=== PATIENT | female | born 1990 | race Caucasian/White ===

== ENCOUNTER → 2019-06-24 09:17 | Outpatient (BNVA) | payer BC, SELFPAY | PROVIDERS: Family Provider Nurse Practitioner Family; PCP Nurse Practitioner Family; Visit Provider Nurse Practitioner Family | DX: R73.9 Hyperglycemia, unspecified (principal); R73.09 Other abnormal glucose | CPT/HCPCS: 80053; 83036; 85025 ==

== ENCOUNTER → 2019-06-25 15:10 | Outpatient (BNVA) | payer BC, SELFPAY | PROVIDERS: Family Provider Nurse Practitioner Family; PCP Nurse Practitioner Family; Visit Provider Otolaryngology | DX: J32.9 Chronic sinusitis, unspecified (principal); J34.3 Hypertrophy of nasal turbinates; J34.2 Deviated nasal septum; H69.80 Other specified disorders of Eustachian tube, unspecified ear; H91.90 Unspecified hearing loss, unspecified ear | CPT/HCPCS: 96372; 99214; J3301 ==

== ENCOUNTER → 2019-07-16 13:40 | Outpatient (BNVA) | payer BC, SELFPAY | PROVIDERS: Family Provider Nurse Practitioner Family; PCP Nurse Practitioner Family; Referring Provider Nurse Practitioner Family; Visit Provider Otolaryngology | DX: H93.90 Unspecified disorder of ear, unspecified ear (principal); H69.80 Other specified disorders of Eustachian tube, unspecified ear; J34.3 Hypertrophy of nasal turbinates; J34.2 Deviated nasal septum | CPT/HCPCS: 99214 ==

== ENCOUNTER → 2019-08-20 09:57 | Outpatient (BNVA) | payer BC, SELFPAY | PROVIDERS: Family Provider Nurse Practitioner Family; PCP Nurse Practitioner Family; Visit Provider Otolaryngology | DX: H69.83 Other specified disorders of Eustachian tube, bilateral (principal); J34.3 Hypertrophy of nasal turbinates; J34.2 Deviated nasal septum | CPT/HCPCS: 99214; 96372; J3301 ==

== ENCOUNTER → 2019-11-20 16:26 | Outpatient (BNVA) | payer BC, SELFPAY | PROVIDERS: Family Provider Nurse Practitioner Family; PCP Nurse Practitioner Family; Visit Provider Nurse Practitioner Family | DX: M25.531 Pain in right wrist (principal) | CPT/HCPCS: 73110 ==

== ENCOUNTER → 2020-02-06 10:11 | Outpatient (BNVA) | payer BC, SELFPAY | PROVIDERS: Family Provider Nurse Practitioner Family; PCP Nurse Practitioner Family; Visit Provider Nurse Practitioner Family | DX: R35.0 Frequency of micturition (principal) | CPT/HCPCS: 81000 ==

== ENCOUNTER → 2020-02-14 10:02 | Outpatient (BNVA) | payer BC, SELFPAY | PROVIDERS: Family Provider Nurse Practitioner Family; PCP Nurse Practitioner Family; Visit Provider Nurse Practitioner Family | DX: N39.0 Urinary tract infection, site not specified (principal) | CPT/HCPCS: 81000 ==

== ENCOUNTER 2020-03-10 09:56 | Outpatient (CLI) | payer BC, SELFPAY ==
--- NOTE | 2020-03-10 11:45 | US_ITS ---
WS: [id number] INDICATION: Skin induration axillary TECHNIQUE: Ultrasound left axilla. FINDINGS: Ultrasound left axilla area of concern. There is a superficial mixed echogenicity collectio n in the area of concern. This measures approximately 1.7 x 4.1 x 0.7 cm small amount of peripheral v ascularity. No definite internal or central vascularity. US/US soft tissue/extremity [id number] IMPRESSION: Left axillary lesion/collection measures 1.7 x 4.1 x 0.7 cm. This does not appe ar drainable but may represent an infected sebaceous cyst with phlegmon. Recomm end clinical correlation for infection and cellulitis. This could be aspirated or biopsied if persistent after antibiotic treatment.
== END 2020-03-10 09:57 | disposition home or self-care (01) ==
LOC: US 09:57
PROVIDERS: PCP Nurse Practitioner Family; Visit Provider Nurse Practitioner Family
DX: R23.4 Changes in skin texture (principal)
CPT/HCPCS: 76882

== ENCOUNTER → 2020-06-24 10:31 | Outpatient (BNVA) | payer OTHER, SELFPAY | PROVIDERS: PCP Nurse Practitioner Family; Visit Provider Nurse Practitioner Family | DX: M25.531 Pain in right wrist (principal); M25.431 Effusion, right wrist | CPT/HCPCS: 73110 ==

== ENCOUNTER → 2020-09-14 11:07 | Outpatient (BNVA) | payer OTHER, SELFPAY | PROVIDERS: PCP Nurse Practitioner Family; Visit Provider Nurse Practitioner Family | DX: M25.531 Pain in right wrist (principal); M25.431 Effusion, right wrist; S69.91XA Unspecified injury of right wrist, hand and finger(s), initial encounter; X58.XXXA Exposure to other specified factors, initial encounter | CPT/HCPCS: 73110 ==

== ENCOUNTER 2021-03-29 19:34 | Emergency (ER) | payer OTHER, SELFPAY ==
[2021-03-29 20:07] VITALS: BP 159/98; PULSE 85; RESP 16; TEMP 36.5; O2SAT 99
[2021-03-29 21:31] LABS: Basophils # 0.1 10^3/uL (0.0-0.1); Basophils % 0.6 %; Eosinophils # 0.1 10^3/uL (0.0-0.8); Eosinophils % 0.9 %; Hematocrit 50.5 % (37.0-47.0); Hemoglobin 15.6 g/dL (11.5-15.3); Lymphocytes # 2.4 10^3/uL (0.8-4.8); Lymphocytes % 25.3 %; Mean Corpuscular HGB Conc 30.9 g/dL (30.0-36.0); Mean Corpuscular Hemoglobin 30.4 pg (28.0-34.0); Mean Corpuscular Volume 98.4 fl (81-99); Mean Platelet Volume 10.8 fL (7.4-10.4); Monocytes # 0.5 10^3/uL (0.2-0.9); Monocytes % 5.4 %; Neutrophils # 6.35 10^3/uL (1.8-7.7); Neutrophils % 67.6 %; Nucleated Red Blood Cells % 0 %; Platelet Count 235 10^3/cmm (130-400); Red Blood Count 5.13 10^6/uL (4.1-5.3); Red Cell Distribution Width 12.8 % (12.1-15.1); White Blood Count 9.4 10^3/uL (4.0-10.0)
[2021-03-29 21:58] LABS: Slide Review Slide Review Perform
[2021-03-29 22:02] LABS: Alanine Aminotransferase 33 U/L (0-33); Albumin Level 3.8 g/dL (3.5-5.2); Alkaline Phosphatase 148 IU/L (35-105); Aspartate Amino Transferase 22 U/L (0-32); Blood Urea Nitrogen 6 mg/dL (6-20); Calcium 8.8 mg/dL (8.5-10.5); Carbon Dioxide 18 mmol/L (22-29); Chloride 104 mmol/L (98-107); Glomerular Filtration Rate 83.7 mL/min (90-130); Glucose 91 mg/dL (65-115); Lipase 54 U/L (13-60); Osmolality Calculated 281 mOsm/kg (285-295); Sodium 137 mmol/L (136-145); Total Bilirubin 0.2 mg/dL (0.15-1.2); Total Protein 7.8 g/dL (6.6-8.7)
[2021-03-29 22:03] LABS: Add Urine Culture? No; Add Urine Microscopic? YES; Bacteria Urine 1+ /hpf; Bilirubin Urine Neg (Negative); Blood Urine 3+ (Negative); Glucose Urine UA Norm (Normal); Ketones Urine Negative (Negative); Leukocyte Esterase Urine Trace (Negative); Mucus Urine TRACE /hpf; Nitrate Urine Negative (Negative); Protein Urine Neg (Negative); RBC Urine 0-4 /hpf (0-2); Specific Gravity, Urine 1.015 (1.005-1.030); Urine Appearance SL Hazy (CLEAR); Urine Color Yellow (Yellow); Urobilinogen Urine Norm (Negative); pH Urine 5 (5-7)
[2021-03-29 22:04] LABS: Anion Gap 18.8 (5-19); Potassium 3.8 mmol/L (3.5-5.1)
--- NOTE | 2021-03-29 22:24 | ED_ITS ---
HPI - Abdominal Pain General: Chief Complaint: Abdominal Pain Stated Complaint: Pain on Right Side Time Seen by Provider: 03/29/21 22:07 History of Present Illness: HPI narrative: Patient is a 30-year-old female comes to the ED with abdominal pain. Patient says pain started approximately 4 days ago. Says the pain started off more mild and it has progressed and gotten worse. She has a history of kidney stones and states the pain is similar to past kidney stones. Abdominal pain currently is rated a 4 out of 10 is located in the right lower quadrant of the abdomen and then radiates up to her right flank. She says symptoms worsen after she eats. She also endorses having nausea but has not had a fever or any episodes of emesis. Denies any UTI symptoms. Denies any chance of being and says she is currently on her period. Associated Symptoms: Reports nausea; Denies chills, constipation, diarrhea, dysuria, fever(s), hematochezia, hematuria and vomiting Review of Systems Const: Denies: fever(s), chills or fatigue Eyes: Denies: change in vision or eye discomfort ENMT: Denies: throat pain, odynophagia, nasal discharge or nasal congestion Card: Denies: chest pain, palpitations, edema, swelling of feet/ankles, dyspnea on exertion or orthopnea Resp: Denies: dyspnea, productive cough or non-productive cough GI: Reports: abdominal pain and nausea; Denies: vomiting, diarrhea, constipation or hematochezia : Denies: flank pain, dysuria or hematuria Musc: Denies: neck pain, back pain or extremity swelling Skin/Breast: Denies: rash or new lesions Neuro: Denies: headache(s), numbness in extremities or weakness in extremities PFS ED PFSH: Medical History Environmental and seasonal allergies Kidney stones Thyroid cancer Surgical History History of lithotripsy History of thyroidectomy Family History Other Diabetes Denies family history of Anesthesia complication Bleeding disorder Social History Smoking and tobacco status: never smoked Second hand smoke exposure: No Alcohol intake: never Lives independently: Yes Housing: House Marital status: Single History of recent travel: No Physical Exam Const: COMMON NORMALS: no acute distress, patient oriented x3, healthy appearing and alert GENERAL APPEARANCE: cooperative and comfortable HENMT: COMMON NORMALS: normocephalic HEAD & SCALP: normocephalic MOUTH: Normal oral and palatal mucosa present THROAT: posterior oropharynx normal and uvula midline Neck/C-Spine: COMMON NORMALS: supple GENERAL: Yes normal visual inspection Resp: COMMON NORMALS: normal respiratory effort, No retractions, No use of accessory muscles and clear to auscultation bilaterally AUSCULTATION: clear to auscultation bilaterally Cardio: COMMON NORMALS: regular rate, regular rhythm, S1 normal heart sound present, S2 normal heart sound present, No gallops present (Cardio), No clicks present (Cardio), No murmurs present (Cardio) and Peripheral pulses 2+ throughout RATE: regular rate RHYTHM: regular rhythm HEART SOUNDS: S1 normal heart sound present and S2 normal heart sound present PERIPHERAL PULSES: Peripheral pulses 2+ throughout GI: COMMON NORMALS: Normal to inspection, nondistended, normoactive bowel sounds present, Soft to palpation and no masses PALPATION: Yes Soft to palpation and Yes Tenderness to palpation present (GI) Details: RLQ : BLADDER/KIDNEY EXAM: Yes CVA tenderness on the right Back/Pelvis: GENERAL BACK: Yes CVA tenderness Extremity: COMMON NORMALS: normal to inspection Neuro: COMMON NORMALS: patient oriented x3 SENSORIUM/ORIENTATION: Yes alert GAIT: Yes Normal gait present Skin: GENERAL SKIN EXAM: dry skin Course Vital Signs: Vital signs: Vital Signs Temperature 97.7 F 03/29/21 20:07 Pulse Rate 96 03/30/21 01:03 Respiratory Rate 19 H 03/30/21 01:03 Blood Pressure 141/72 03/30/21 01:03 Pulse Oximetry 99 03/30/21 01:03 MDM - Abdominal Pain MDM Narrative: Medical decision making narrative: Patient is a 30-year-old female comes to the ED with abdominal pain. Pain is located in the right lower quadrant of the abdomen. Endorses some nausea and worsening symptoms when she eats. Denies fever, emesis, bladder or bowel symptoms. Vital stable. Patient appears nontoxic and in no acute distress or pain. She has some right lower quadrant abdominal tenderness. Labs are unremarkable. CT of abdomen pelvis showed no acute findings. Patient was given IV fluids, Toradol and Reglan while here in the ED. She has diagnosed with abdominal pain and discharged home with a prescription for Celebrex and Reglan. She was told to follow-up with her PCP in 7 to 10 days for reevaluation. Return to ED precautions given. Patient understood and agreed with plan. Lab Data: Attestation: I reviewed the patient's lab results. Labs: Lab Results 03/29/21 03/29/21 03/29/21 21:23 21:23 21:45 WBC 9.4 10^3/uL 10^3/ uL (4.0-10.0) RBC 5.13 10^6/uL 10^6 /uL (4.1-5.3) Hgb 15.6 g/dL H g/dL (11.5-15.3) Hct 50.5 % H % (37.0-47.0) MCV 98.4 fl fl (81-99) MCH 30.4 pg pg (28.0-34.0) MCHC 30.9 g/dL g/dL (30.0-36.0) RDW 12.8 % % (12.1-15.1) Plt Count 235 10^3/cmm 10^3 /cmm (130-400) MPV 10.8 fL H fL (7.4-10.4) Neut % (Auto) 67.6 % % Lymph % (Auto) 25.3 % % [place] % (Auto) 5.4 % % Eos % (Auto) 0.9 % % Baso % (Auto) 0.6 % % Neut # (Auto) 6.35 10^3/uL 10^3 /uL (1.8-7.7) Lymph # (Auto) 2.4 10^3/uL 10^3/ uL (0.8-4.8) [place] # (Auto) 0.5 10^3/uL 10^3/ uL (0.2-0.9) Eos # (Auto) 0.1 10^3/uL 10^3/ uL (0.0-0.8) Baso # (Auto) 0.1 10^3/uL 10^3/ uL (0.0-0.1) Nucleated RBC % (a uto) 0 % % Nucleated RBCs # 0.0 /100WBC /100W BC Sodium 137 mmol/L mmol/L (136-145) Potassium 3.8 mmol/L mmol/L (3.5-5.1) Chloride 104 mmol/L mmol/L (98-107) Carbon Dioxide 18 mmol/L L mmol/ L (22-29) Anion Gap 18.8 (5-19) BUN 6 mg/dL mg/dL (6-20) Creatinine 0.8 mg/dL mg/dL (0.5-0.9) GFR Calculation 83.7 mL/min L mL/ min (90-130) Glucose 91 mg/dL mg/dL (65-115) Calculated Osmolal ity 281 mOsm/kg L mOs m/kg (285-295) Calcium 8.8 mg/dL mg/dL (8.5-10.5) Total Bilirubin 0.2 mg/dL mg/dL (0.15-1.2) AST 22 U/L U/L (0-32) ALT 33 U/L U/L (0-33) Alkaline Phosphata se 148 IU/L H IU/L (35-105) Total Protein 7.8 g/dL g/dL (6.6-8.7) Albumin 3.8 g/dL g/dL (3.5-5.2) Globulin 4.0 g/dL g/dL (1.3-4.6) Lipase 54 U/L U/L (13-60) Urine Color Yellow (Yellow) Urine Appearance Sl hazy (CLEAR) Urine pH 5 (5-7) Ur Specific Gravit y 1.015 (1.005-1.030) Urine Protein Neg (Negative) Urine Glucose (UA) Norm (Normal) Urine Ketones Negative (Negative) Urine Blood 3+ H (Negative) Urine Nitrate Negative (Negative) Urine Bilirubin Neg (Negative) Urine Urobilinogen Norm mg/dL mg/dL (Negative) Ur Leukocyte Rosio ase Trace H (Negative) Urine RBC 0-4 /hpf H /hpf (0-2) Urine WBC 5-10 /hpf H /hpf (0-5) Ur Squamous Epith Cells 10-15 /hpf H /hpf (0-5) Amorphous Sediment Not Reportable Urine Bacteria 1+ /hpf H /hpf (NONE) Urine Mucus Trace /hpf /hpf Urine HCG, Qual 03/29/21 21:45 WBC RBC Hgb Hct MCV MCH MCHC RDW Plt Count MPV Neut % (Auto) Lymph % (Auto) [place] % (Auto) Eos % (Auto) Baso % (Auto) Neut # (Auto) Lymph # (Auto) [place] # (Auto) Eos # (Auto) Baso # (Auto) Nucleated RBC % (a uto) Nucleated RBCs # Sodium Potassium Chloride Carbon Dioxide Anion Gap BUN Creatinine GFR Calculation Glucose Calculated Osmolal ity Calcium Total Bilirubin AST ALT Alkaline Phosphata se Total Protein Albumin Globulin Lipase Urine Color Urine Appearance Urine pH Ur Specific Gravit y Urine Protein Urine Glucose (UA) Urine Ketones Urine Blood Urine Nitrate Urine Bilirubin Urine Urobilinogen Ur Leukocyte Rosio ase Urine RBC Urine WBC Ur Squamous Epith Cells Amorphous Sediment Urine Bacteria Urine Mucus Urine HCG, Qual Negative (Negative) Imaging Data ^: CT Abd/Pel: Attestation: I personally reviewed and interpreted this imaging study as follows: Radiologist's impression: [address] [address] [address] Scan Report Signed Patient: Nia Esteban Unit #: [id number] : 1990 Age/Sex: 30 / F ADM Date: 03/29/21 Loc: ER Room/Bed: Attending Dr: Ordering Provider/Ordering MD: Reinaldo Ryder Date of Service: 03/29/21 Procedure(s): CT abdomen pelvis w con* [id number] Accession Number(s): [id number] Report Number: [id number] PROCEDURE INFORMATION: Exam: CT Abdomen And Pelvis With Contrast Exam date and time: 03/29/2021 10:26 PM Age: 30 years old Clinical indication: Abdominal pain; Localized; Right lower quadrant (rlq); Additional info: Rlq pain with nausea TECHNIQUE: Imaging protocol: Computed tomography of the abdomen and pelvis with contrast. Radiation optimization: All CT scans at this facility use at least one of these dose optimization techniques: automated exposure control; mA and/or kV adjustment per patient size (includes targeted exams where dose is matched to clinical indication); or iterative reconstruction. Contrast material: OMNI 300; Contrast volume: 95 ml; Contrast route: INTRAVENOUS (IV); COMPARISON: CR XR KUB [id number] 09/25/2014 8:04 AM RADIATION DOSE METRICS: Total DLP (mGy-cm): 1945.99 FINDINGS: Liver: Hepatic steatosis. Gallbladder and bile ducts: Normal. No calcified stones. No ductal dilation. Pancreas: Normal. No ductal dilation. Spleen: Normal. No splenomegaly. Adrenal glands: Normal. No mass. Kidneys and ureters: Normal. No hydronephrosis. Stomach and bowel: Unremarkable. No obstruction. No mucosal thickening. Appendix: No evidence of appendicitis. Intraperitoneal space: Unremarkable. No free air. No significant fluid collection. Vasculature: Unremarkable. No abdominal aortic aneurysm. Lymph nodes: Unremarkable. No enlarged lymph nodes. Urinary bladder: Unremarkable as visualized. Reproductive: Unremarkable as visualized. Bones/joints: Chronic L5 pars interarticularis defects. Soft tissues: Small umbilical hernia containing omental fat without bowel or inflammatory changes. CT/CT abdomen pelvis w con* [id number] IMPRESSION: 1. Negative for focal acute inflammatory process in the abdomen or pelvis. 2. Hepatic steatosis. 3. Small umbilical hernia containing omental fat without bowel or inflammatory changes. 4. Chronic L5 pars interarticularis defects. Radiation Dose CTDIVOL = (mGy): DLP = 1945.99 (mGy-cm) Dictated By: Jian Will MD Signed By: Jian Will MD Signed Date/Time: 03/30/210 DD/ 25 Discharge Plan Discharge Patient Disposition: Home Clinical Impression: Abdominal pain Qualifiers: Abdominal location: right lower quadrant Qualified Code(s): R10.31 - Right lower quadrant pain Condition: Stable Prescriptions: New celecoxib 100 mg capsule 100 mg PO BID PRN (Reason: pain) Qty: 20 RF: 0 metoclopramide HCl 10 mg tablet 10 mg PO Q6H PRN (Reason: nausea and vomiting) Qty: 20 RF: 0 No Action omeprazole 40 mg capsule,delayed release(DR/EC) 40 mg PO DAILY 30 Days Qty: 30 RF: 2 sucralfate [Carafate] 1 gram tablet 1 g PO TID 30 Days Qty: 90 RF: 0 levothyroxine 137 mcg capsule 137 mcg PO BID RF: 0 loratadine 10 mg tablet 10 mg PO DAILY 30 Days Qty: 30 RF: 11 montelukast [Singulair] 10 mg tablet 10 mg PO DAILY 30 Days Qty: 30 RF: 11 fluticasone propionate [Flonase Allergy Relief] 50 mcg/actuation spray,suspension 1 spray INTRANASAL BID 30 Days Qty: 9.9 RF: 11 Discharge Orders: Discharge ED (Routine); Ordered 03/30/21 Ordered By: Reinaldo Ryder Discharge Diet: Regular Discharge Activity: Resume usual activity Patient Instructions: Abdominal Pain (ED) Activity Restrictions/Additional Instructions: Follow-up with medical provider as directed in 7 to 10 days reevaluation. Take medications as prescribed. Return to the ER or your medical provider if condition worsens. Please read and understand discharge instructions. Thank you for choosing [facility] for your healthcare needs today. Please realize this is an emergency room and that we are providing you with a medical screening exam and this may not be complete and all inclusive of all the testing and or work up that you may need to determine your ailment or severity of your illness. It is very important that you follow up as instructed or that you return to the Emergency Department should you have concerns or if your condition changes or worsens in any way. Stand Alone Forms: Work/School Release Coding Level of Care Code ED Med Peds for Hari Fwd Exam Comprehensive
[2021-03-29 22:45] VITALS: BP 161/82; PULSE 80; RESP 17; O2SAT 98
[2021-03-29] MEDS: sodium chloride 0.9% 1,000 ML 999 ML IV (22:45)
[2021-03-29] MEDS: ondansetron 2 mg/ML SDV 2 mL 4 MG IVP (22:46)
[2021-03-29] MEDS: iohexol 300 mg/mL 100 mL Btl IV (23:52)
[2021-03-30] MEDS: metoclopramide 5 mg/mL SDV 2 mL 10 MG IVP (00:52)
[2021-03-30] MEDS: ketorolac 30 mg/mL INJ IVP (00:52)
[2021-03-30 01:03] VITALS: BP 141/72; PULSE 96; RESP 19; O2SAT 99
== END 2021-03-30 01:03 | disposition home or self-care (01) ==
PROVIDERS: Emergency Provider Physician Assistant
DX: R10.31 Right lower quadrant pain (principal); N20.0 Calculus of kidney; Z85.850 Personal history of malignant neoplasm of thyroid
CPT/HCPCS: 74177; 80053; 81001; 81025; 83690; 85025; 96361; 96374; 96375; 99284; J1885; J2405; J2765; J7030; Q9967

== ENCOUNTER → 2021-04-05 09:35 | Outpatient (BNVA) | payer OTHER, SELFPAY | PROVIDERS: Visit Provider Nurse Practitioner Family | DX: R10.31 Right lower quadrant pain (principal); Z12.4 Encounter for screening for malignant neoplasm of cervix; K21.9 Gastro-esophageal reflux disease without esophagitis; R10.13 Epigastric pain; R10.11 Right upper quadrant pain | CPT/HCPCS: 81000 ==

== ENCOUNTER 2021-06-08 07:51 | Outpatient (CLI) | payer OTHER, SELFPAY ==
--- NOTE | 2021-06-08 08:45 | US_ITS ---
WS: [id number] ULTRASOUND ABDOMEN LIMITED CLINICAL INFORMATION: R10.11 - Right upper quadrant pain COMPARISON: None. FINDINGS: Liver Size: Enlarged Craniocaudal length: 16.2 cm. Echogenicity: Coarse Surface nodularity: None. Mass (size and location): None. Bile ducts Intrahepatic ducts: Normal. Common bile duct diameter: 0.4 cm. Gallbladder Normal. Gallstones: None. Gallbladder sludge: None. Gallbladder wall thickening: None. Pericholecystic fluid: None. Sonographic Vega sign: Absent. Pancreas Normal as visualized. Right kidney: Normal. Hydronephrosis: None. Size: 10.2 cm x 4.3 cm x 4.4 cm. Abdominal aorta and IVC Visualized portions are normal. Ascites: None. US/US gall bladder [id number] IMPRESSION: 1. Hepatomegaly diffuse fatty infiltration. 2. Normal gallbladder and common bile duct. 3. No hydronephrosis in right kidney.
== END 2021-06-08 07:52 | disposition home or self-care (01) ==
LOC: RAD 07:54
PROVIDERS: Visit Provider Nurse Practitioner Family
DX: R10.11 Right upper quadrant pain (principal); R16.0 Hepatomegaly, not elsewhere classified; K76.89 Other specified diseases of liver
CPT/HCPCS: 76705

== ENCOUNTER → 2021-07-02 09:00 | Outpatient (BNVA) | payer OTHER, SELFPAY | PROVIDERS: PCP Nurse Practitioner Family; Referring Provider Nurse Practitioner Family; Visit Provider Obstetrics & Gynecology | DX: Z12.4 Encounter for screening for malignant neoplasm of cervix (principal) | CPT/HCPCS: 87624 ==

== ENCOUNTER → 2021-07-16 10:33 | Outpatient (BNVA) | payer OTHER, SELFPAY | PROVIDERS: PCP Nurse Practitioner Family; Visit Provider Nurse Practitioner Family | DX: M21.241 Flexion deformity, right finger joints (principal); M21.242 Flexion deformity, left finger joints; M25.531 Pain in right wrist; M25.532 Pain in left wrist; M25.541 Pain in joints of right hand; M25.542 Pain in joints of left hand; R76.8 Other specified abnormal immunological findings in serum; R10.31 Right lower quadrant pain; M19.90 Unspecified osteoarthritis, unspecified site | CPT/HCPCS: 80053; 85025; 85651; 86140; 86431 ==

== ENCOUNTER → 2021-07-29 12:06 | Outpatient (BNVA) | payer OTHER, SELFPAY | PROVIDERS: PCP Nurse Practitioner Family; Visit Provider Nurse Practitioner Family | DX: L02.419 Cutaneous abscess of limb, unspecified (principal) | CPT/HCPCS: 87070; 87077; 87184 ==

== ENCOUNTER → 2021-08-23 11:17 | Outpatient (BNVA) | payer OTHER, SELFPAY | PROVIDERS: PCP Nurse Practitioner Family; Visit Provider Nurse Practitioner Family | DX: R19.7 Diarrhea, unspecified (principal) | CPT/HCPCS: 87506 ==

== ENCOUNTER 2021-10-12 09:39 | Outpatient (CLI) | payer OTHER, SELFPAY ==
[2021-10-12 10:52] LABS: Basophils # 0.1 10^3/uL (0.0-0.1); Basophils % 0.4 %; Eosinophils # 0.1 10^3/uL (0.0-0.8); Eosinophils % 0.9 %; Hematocrit 45.4 % (37.0-47.0); Hemoglobin 14.5 g/dL (11.5-15.3); Lymphocytes # 3.8 10^3/uL (0.8-4.8); Mean Corpuscular HGB Conc 31.9 g/dL (30.0-36.0); Mean Corpuscular Hemoglobin 29.7 pg (28.0-34.0); Mean Corpuscular Volume 92.8 fl (81-99); Mean Platelet Volume 10.3 fL (7.4-10.4); Monocytes # 0.8 10^3/uL (0.2-0.9); Monocytes % 5.4 %; Neutrophils # 9.33 10^3/uL (1.8-7.7); Neutrophils % 65.9 %; Nucleated Red Blood Cells % 0 %; Platelet Count 362 10^3/cmm (130-400); Red Blood Count 4.89 10^6/uL (4.1-5.3); Red Cell Distribution Width 13.7 % (12.1-15.1); White Blood Count 14.2 10^3/uL (4.0-10.0)
[2021-10-12 11:19] LABS: Alanine Aminotransferase 23 U/L (0-33); Aspartate Amino Transferase 15 U/L (0-32); Glomerular Filtration Rate 83.1 mL/min (90-130)
== END 2021-10-12 09:40 | disposition home or self-care (01) ==
LOC: LAB 09:42
PROVIDERS: PCP Nurse Practitioner Family; Visit Provider Internal Medicine
DX: M06.9 Rheumatoid arthritis, unspecified (principal); Z79.899 Other long term (current) drug therapy
CPT/HCPCS: 36415; 82565; 84450; 84460; 85025

== ENCOUNTER → 2021-11-10 11:11 | Outpatient (BNVA) | payer OTHER, SELFPAY | PROVIDERS: PCP Nurse Practitioner Family; Visit Provider Nurse Practitioner Family | DX: J30.89 Other allergic rhinitis (principal); H65.193 Other acute nonsuppurative otitis media, bilateral | CPT/HCPCS: 87635 ==

== ENCOUNTER 2022-02-22 09:19 | Outpatient (CLI) | payer OTHER, SELFPAY ==
[2022-02-22 10:03] LABS: Basophils # 0.1 10^3/uL (0.0-0.1); Basophils % 0.7 %; Eosinophils # 0.2 10^3/uL (0.0-0.8); Eosinophils % 1.8 %; Hematocrit 42.3 % (37.0-47.0); Hemoglobin 13.6 g/dL (11.5-15.3); Lymphocytes # 2.4 10^3/uL (0.8-4.8); Lymphocytes % 24.1 %; Mean Corpuscular HGB Conc 32.2 g/dL (30.0-36.0); Mean Corpuscular Hemoglobin 31.3 pg (28.0-34.0); Mean Corpuscular Volume 97.5 fl (81-99); Mean Platelet Volume 9.9 fL (7.4-10.4); Monocytes # 0.4 10^3/uL (0.2-0.9); Monocytes % 4.3 %; Neutrophils # 6.68 10^3/uL (1.8-7.7); Neutrophils % 68.7 %; Nucleated Red Blood Cells % 0 %; Platelet Count 370 10^3/cmm (130-400); Red Blood Count 4.34 10^6/uL (4.1-5.3); Red Cell Distribution Width 13.9 % (12.1-15.1); White Blood Count 9.7 10^3/uL (4.0-10.0)
[2022-02-22 10:27] LABS: Alanine Aminotransferase 39 U/L (0-33); Aspartate Amino Transferase 23 U/L (0-32); Glomerular Filtration Rate 115.9 mL/min (90-130)
== END 2022-02-22 09:20 | disposition home or self-care (01) ==
LOC: LAB 09:23
PROVIDERS: PCP Nurse Practitioner Family; Visit Provider Internal Medicine
DX: M05.9 Rheumatoid arthritis with rheumatoid factor, unspecified (principal); M25.50 Pain in unspecified joint; Z79.52 Long term (current) use of systemic steroids; Z79.899 Other long term (current) drug therapy; D84.9 Immunodeficiency, unspecified
CPT/HCPCS: 82565; 84450; 84460; 85025

== ENCOUNTER → 2022-04-29 12:18 | Outpatient (BNVA) | payer OTHER, SELFPAY | PROVIDERS: PCP Nurse Practitioner Family; Visit Provider Nurse Practitioner Family | DX: R74.8 Abnormal levels of other serum enzymes (principal); Z13.6 Encounter for screening for cardiovascular disorders | CPT/HCPCS: 80053; 80061; 85025; 86705; 86706; 86709; 86803; 87340 ==

== ENCOUNTER → 2022-07-04 09:39 | Outpatient (BNVA) | payer OTHER, SELFPAY | PROVIDERS: PCP Nurse Practitioner Family; Visit Provider Nurse Practitioner Family | DX: E78.5 Hyperlipidemia, unspecified (principal); R73.9 Hyperglycemia, unspecified | CPT/HCPCS: 80053; 80061; 83036; 84443; 85025 ==

== ENCOUNTER → 2022-07-26 11:13 | Outpatient (BNVA) | payer OTHER, SELFPAY | PROVIDERS: PCP Nurse Practitioner Family; Visit Provider Nurse Practitioner Family | DX: E03.9 Hypothyroidism, unspecified (principal); R74.8 Abnormal levels of other serum enzymes | CPT/HCPCS: 82977; 84443 ==

== ENCOUNTER 2022-11-18 09:57 | Outpatient (CLI) | payer OTHER, SELFPAY ==
[2022-11-18 10:52] LABS: Basophils % 0.6 %; Eosinophils # 0.2 10^3/uL (0.0-0.8); Eosinophils % 2.2 %; Hematocrit 44.5 % (37.0-47.0); Hemoglobin 14.6 g/dL (11.5-15.3); Lymphocytes # 2.5 10^3/uL (0.8-4.8); Lymphocytes % 37.1 %; Mean Corpuscular HGB Conc 32.8 g/dL (30.0-36.0); Mean Corpuscular Hemoglobin 30.1 pg (28.0-34.0); Mean Corpuscular Volume 91.8 fl (81-99); Mean Platelet Volume 10.3 fL (7.4-10.4); Monocytes # 0.5 10^3/uL (0.2-0.9); Monocytes % 6.7 %; Neutrophils # 3.63 10^3/uL (1.8-7.7); Neutrophils % 53.3 %; Nucleated Red Blood Cells % 0 %; Platelet Count 294 10^3/cmm (130-400); Red Blood Count 4.85 10^6/uL (4.1-5.3); Red Cell Distribution Width 13.1 % (12.1-15.1); White Blood Count 6.8 10^3/uL (4.0-10.0)
[2022-11-18 11:07] LABS: Alanine Aminotransferase 26 U/L (0-33); Aspartate Amino Transferase 21 U/L (0-32); Glomerular Filtration Rate 96.4 mL/min (90-130)
== END 2022-11-18 09:58 | disposition home or self-care (01) ==
PROVIDERS: PCP Nurse Practitioner Family; Visit Provider Internal Medicine
DX: M05.9 Rheumatoid arthritis with rheumatoid factor, unspecified (principal); Z79.899 Other long term (current) drug therapy
CPT/HCPCS: 36415; 82565; 84450; 84460; 85025

== ENCOUNTER 2022-12-23 10:17 | Outpatient (CLI) | payer OTHER, SELFPAY ==
[2022-12-23 11:53] LABS: Basophils % 0.5 %; Eosinophils # 0.1 10^3/uL (0.0-0.8); Eosinophils % 1.3 %; Hematocrit 43.8 % (37.0-47.0); Hemoglobin 14.4 g/dL (11.5-15.3); Lymphocytes # 2.9 10^3/uL (0.8-4.8); Lymphocytes % 33.6 %; Mean Corpuscular HGB Conc 32.9 g/dL (30.0-36.0); Mean Corpuscular Hemoglobin 30.5 pg (28.0-34.0); Mean Corpuscular Volume 92.8 fl (81-99); Mean Platelet Volume 10.2 fL (7.4-10.4); Monocytes # 0.5 10^3/uL (0.2-0.9); Monocytes % 6.1 %; Neutrophils % 58.2 %; Nucleated Red Blood Cells % 0 %; Platelet Count 315 10^3/cmm (130-400); Red Blood Count 4.72 10^6/uL (4.1-5.3); Red Cell Distribution Width 13.5 % (12.1-15.1); White Blood Count 8.6 10^3/uL (4.0-10.0)
[2022-12-23 12:11] LABS: Alanine Aminotransferase 29 U/L (0-33); Aspartate Amino Transferase 17 U/L (0-32); Glomerular Filtration Rate 82.6 mL/min (90-130)
== END 2022-12-23 10:18 | disposition home or self-care (01) ==
LOC: LAB 10:19
PROVIDERS: PCP Nurse Practitioner Family; Visit Provider Internal Medicine
DX: M05.9 Rheumatoid arthritis with rheumatoid factor, unspecified (principal); L73.2 Hidradenitis suppurativa; Z79.899 Other long term (current) drug therapy
CPT/HCPCS: 82565; 84450; 84460; 85025

== ENCOUNTER → 2023-01-20 08:59 | Outpatient (BNVA) | payer OTHER, SELFPAY | PROVIDERS: PCP Nurse Practitioner Family; Visit Provider Nurse Practitioner Family | DX: E03.9 Hypothyroidism, unspecified (principal); E78.5 Hyperlipidemia, unspecified | CPT/HCPCS: 80053; 80061; 83036; 85025 ==

== ENCOUNTER 2023-02-09 06:57 | Outpatient (CLI) | payer OTHER, SELFPAY ==
--- NOTE | 2023-02-09 07:15 | MR_ITS ---
WS: [id number] MRI RIGHT FOREARM WITHOUT CONTRAST. COMPARISON: None Multiplanar, multisequence imaging is performed without contrast. History: Generalized swelling of the forearm and hand. No muscle edema or atrophy. There is no significant subcutaneous edema and no fluid collections. No f luid surrounding the muscles or within the compartments of the forearm. Osseous structures are normal . No fractures or marrow edema. No joint effusion at the elbow. There are small erosions involving the distal ulna and also the distal radius. There is a small erosi ons also noted within the visualized lunate. These are at the very edge of the image. No fluid associ ated no dislocation. IMPRESSION: 1. Articular erosions involving the distal radius and ulna and the adjacent lunate. No associated mitchell ma. No marrow edema. No dislocation. These findings can be seen with rheumatoid arthritis. 2. No synovitis appreciated.
--- NOTE | 2023-02-09 08:00 | MR_ITS ---
WS: [id number] MRI RIGHT HAND WITHOUT CONTRAST. COMPARISON: None Multiplanar, multisequence imaging is performed without contrast. History: Pain, swelling and rheumatoid arthritis. There is a very small amount of edema associated with the flexor tendons through the wrist no signifi cant amount of edema in the carpal tunnel. Very minimal increased signal associated with the flexor t endons near the MCP joints. Both of these findings can be seen with very early changes of rheumatoid arthritis. No marrow edema or subluxations or even erosions are identified. There is mild narrowing a nd slight subluxation of the first metacarpal phalangeal joint. IMPRESSION: 1. Very minimal changes of flexor tendon tenosynovitis and synovitis and synovitis at the MCP joints. These changes can be seen with early evidence for rheumatoid arthritis. 2. There is no marrow edema. No metacarpal head erosions. 3. Very minimal subluxation and joint space narrowing at the first metacarpal phalangeal joint.
== END 2023-02-09 06:58 | disposition home or self-care (01) ==
LOC: RAD 06:58
PROVIDERS: PCP Nurse Practitioner Family; Visit Provider Nurse Practitioner Family
DX: M06.9 Rheumatoid arthritis, unspecified (principal); M79.89 Other specified soft tissue disorders; Q74.0 Other congenital malformations of upper limb(s), including shoulder girdle
CPT/HCPCS: 73218; 80053; 80061; 83036; 85025

== ENCOUNTER → 2023-07-06 10:56 | Outpatient (BNVA) | payer BC, SELFPAY | PROVIDERS: PCP Nurse Practitioner Family; Visit Provider Nurse Practitioner Family | DX: E78.5 Hyperlipidemia, unspecified (principal) | CPT/HCPCS: 80053; 80061; 85025 ==

== ENCOUNTER → 2023-08-16 11:26 | Outpatient (BNVA) | payer BC, MEDICAID, SELFPAY | PROVIDERS: PCP Nurse Practitioner Family; Visit Provider Nurse Practitioner Family | DX: C73 Malignant neoplasm of thyroid gland (principal) | CPT/HCPCS: 84439; 84443; 86800 ==

== ENCOUNTER → 2023-09-26 11:09 | Outpatient (BNVA) | payer BC, MEDICAID, SELFPAY | PROVIDERS: PCP Nurse Practitioner Family; Visit Provider Nurse Practitioner Family | DX: M54.50 Low back pain, unspecified (principal) | CPT/HCPCS: 81000; 87086 ==

== ENCOUNTER 2023-09-27 10:02 | Outpatient (CLI) | payer BC, MEDICAID, SELFPAY ==
--- NOTE | 2023-09-27 10:10 | XRR_ITS ---
PROCEDURE INFORMATION: Exam: XR Abdomen Exam date and time: 09/27/2023 10:15 AM Age: 33 years old Clinical indication: Other: Hematuria, unspecified; Prior surgery; Surgery date: 6+ months; Surgery type: Lithotripsy, skin; Additional info: R31.9 - hematuria, unspecified TECHNIQUE: Imaging protocol: Radiologic exam of the abdomen. Views: Frontal supine view of the abdomen. 1 View. COMPARISON: CT abdomen pelvis w con* [id number] 03/29/2021 11:49 PM FINDINGS: Gastrointestinal tract: Calcifications checked over the lower pole left kidney.. No bowel dilation. Bones/joints: Unremarkable. XR/XR abdomen 1V* [id number] IMPRESSION: No acute findings.
[2023-09-27 10:38] LABS: Basophils # 0.1 10^3/uL (0.0-0.1); Basophils % 0.3 %; Eosinophils % 0.2 %; Hematocrit 42.2 % (36-47); Lymphocytes # 3.5 10^3/uL (0.8-4.8); Lymphocytes % 18.1 %; Mean Corpuscular HGB Conc 33.4 g/dL (30-55); Mean Corpuscular Hemoglobin 31.5 pg (27-33); Mean Corpuscular Volume 94.4 fl (85-98); Mean Platelet Volume 10.1 fL (7.4-10.4); Monocytes # 1.2 10^3/uL (0.2-0.9); Monocytes % 5.9 %; Neutrophils # 14.61 10^3/uL (1.8-7.7); Neutrophils % 74.8 %; Nucleated Red Blood Cells % 0 %; Platelet Count 318 10^3/cmm (157-399); Red Blood Count 4.47 10^6/uL (3.85-5.65); Red Cell Distribution Width 13.6 % (12.1-15.1); White Blood Count 19.52 10^3/uL (3.29-11.43)
[2023-09-27 11:00] LABS: Alanine Aminotransferase 42 U/L (0-33); Aspartate Amino Transferase 26 U/L (0-32); Glomerular Filtration Rate 82.1 mL/min (90-130)
== END 2023-09-27 10:03 | disposition home or self-care (01) ==
LOC: LAB 10:06
PROVIDERS: PCP Nurse Practitioner Family; Visit Provider Nurse Practitioner Family
DX: R31.9 Hematuria, unspecified (principal); Z87.442 Personal history of urinary calculi
CPT/HCPCS: 36415; 74018; 82565; 84450; 84460; 85025

== ENCOUNTER → 2023-10-03 11:45 | Outpatient (BNVA) | payer BC, MEDICAID, SELFPAY | PROVIDERS: PCP Nurse Practitioner Family; Visit Provider Nurse Practitioner Family | DX: R39.9 Unspecified symptoms and signs involving the genitourinary system (principal); R31.9 Hematuria, unspecified | CPT/HCPCS: 81000; 85025 ==

== ENCOUNTER → 2024-03-21 12:14 | Outpatient (BNVA) | payer BC, SELFPAY | PROVIDERS: PCP Nurse Practitioner Family; Visit Provider Nurse Practitioner Family | DX: E78.2 Mixed hyperlipidemia (principal) | CPT/HCPCS: 80053; 80061; 84443; 85025 ==

== ENCOUNTER 2024-04-16 10:06 | Outpatient (CLI) | payer BC, MEDICAID, SELFPAY ==
[2024-04-16 10:41] LABS: Basophils # 0.1 10^3/uL (0.0-0.1); Basophils % 0.5 %; Eosinophils # 0.2 10^3/uL (0.0-0.8); Eosinophils % 2.1 %; Hematocrit 45.7 % (36-47); Lymphocytes # 3.7 10^3/uL (0.8-4.8); Lymphocytes % 34.7 %; Mean Corpuscular HGB Conc 32.6 g/dL (30-55); Mean Corpuscular Hemoglobin 31.4 pg (27-33); Mean Corpuscular Volume 96.2 fl (85-98); Mean Platelet Volume 10.2 fL (7.4-10.4); Monocytes # 0.6 10^3/uL (0.2-0.9); Monocytes % 5.3 %; Neutrophils # 6.09 10^3/uL (1.8-7.7); Neutrophils % 56.9 %; Nucleated Red Blood Cells % 0 %; Platelet Count 325 10^3/cmm (157-399); Red Blood Count 4.75 10^6/uL (3.85-5.65); Red Cell Distribution Width 13.8 % (12.1-15.1); White Blood Count 10.71 10^3/uL (3.29-11.43)
[2024-04-16 11:10] LABS: Alanine Aminotransferase 53 U/L (0-33); Aspartate Amino Transferase 26 U/L (0-32); Glomerular Filtration Rate 71.3 mL/min (90-130)
== END 2024-04-16 10:07 | disposition home or self-care (01) ==
LOC: LAB 10:08
PROVIDERS: PCP Nurse Practitioner Family; Visit Provider Internal Medicine
DX: M05.9 Rheumatoid arthritis with rheumatoid factor, unspecified (principal); M06.9 Rheumatoid arthritis, unspecified; E03.9 Hypothyroidism, unspecified; Z79.899 Other long term (current) drug therapy; D84.9 Immunodeficiency, unspecified; R79.82 Elevated C-reactive protein (CRP)
CPT/HCPCS: 82565; 84450; 84460; 85025

== ENCOUNTER 2024-04-25 06:13 | Outpatient (CLI) | payer BC, MEDICAID, SELFPAY ==
--- NOTE | 2024-04-23 13:30 | P.DIET_ITS ---
Reason for Visit: R79.89 - Other specified abnormal findings of bloo Person Interviewed: Patient Medical History, Labs and Background: PMH: HS, thyroid cancer (s/p thyroidectomy 6-7 years), RA, stressed. Labs: TGL: 157, CHOL: 254, LDL: 175 Meds: 150 mg QD levo, allergy med, folic acid, rob Weight: 248 lb Concerns and Goals: goal weight of 175lbs Sleep Hygiene: 5-6 hours of sleep on a good night Physical Activity: not very. discussed opportunities Feeding Issues: None Other Feeding Issues: none Food Allergies and Sensitivities: none 24 Hour Recall: * Dietary * Staying on track is the biggest issue. Used to help with weight loss.. Likes to snack. Wanting to lose weight for about the last year.? * Snacks: popcorn, peanuts, mixed nuts * [employer], DQ, subway, pizza, [place], julita monday,? * 1-2 meals daily but mainly snack * Drinks sweet tea. Eating Out: eats out [id number] of the time. mainly fast food Soda vs Milk vs Water: mostly does sweet tea. sometimes soda Additional Comments: Environment Lives with brother and dogs. Mother and family passed recently Works at assisted living (sits at desk). 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 Likes to sleep in 5-6 hours of sleep on a good night. Recommendations: -limit kcals from liquids. switching to unsweet tea, water, and/or artificially sweetened drinks -increased protein intakes (handout provided) and having PRO source with every snack/meal -increased PA levels. going on walk 2-3 x weekly and adding resistance training 1-2 x weekly -opting for smaller CHO portions at fast food. -increase fruit and veggie consumption (1 at every meal) and buying frozen/canned to make more available and accessible at home -decrease self weigh ins from 7 x weekly at night to biweekly in the morning -increasing sleep from 5-6 hours to 7-8 hours. -stress management Coding Level of Care Code Nutrition/Individ/Init 60 min Time Spent (min) 60
--- NOTE | 2024-04-25 06:15 | US_ITS ---
WS: [id number] ULTRASOUND ABDOMEN LIMITED CLINICAL INFORMATION: R79.89 - Other specified abnormal findings of blood chemi... FINDINGS: Comparison 2020 Liver Size: Normal. Craniocaudal length: 14.8 cm. Echogenicity: Coarse Surface nodularity: None. Mass (size and location): None. Bile ducts Intrahepatic ducts: Normal. Common bile duct diameter: 0.4 cm. Gallbladder Cholelithiasis Gallstones: Present Gallbladder sludge: None. Gallbladder wall thickening: None. Pericholecystic fluid: None. Sonographic Vega sign: Absent. Pancreas Normal as visualized. Right kidney: Normal. Hydronephrosis: None. Size: 11.4 cm x 4.6 cm x 4.2 cm. Abdominal aorta and IVC Visualized portions are normal. Ascites: None. US/US liver [id number] IMPRESSION: 1. Diffuse fatty filtration liver. 2. Cholelithiasis. 3. No gallbladder wall thickening or pericholecystic fluid. 4. Normal common bile duct. 5. No hydronephrosis in the RIGHT kidney.
== END 2024-04-25 06:14 | disposition home or self-care (01) ==
PROVIDERS: PCP Nurse Practitioner Family; Visit Provider Nurse Practitioner Family
DX: K76.0 Fatty (change of) liver, not elsewhere classified (principal); R79.89 Other specified abnormal findings of blood chemistry; K80.20 Calculus of gallbladder without cholecystitis without obstruction
CPT/HCPCS: 76705

== ENCOUNTER → 2024-08-05 11:21 | Outpatient (BNVA) | payer BC, SELFPAY | PROVIDERS: PCP Nurse Practitioner Family; Visit Provider Nurse Practitioner Women's Health | DX: Z01.419 Encounter for gynecological examination (general) (routine) without abnormal findings (principal); N92.6 Irregular menstruation, unspecified | CPT/HCPCS: 83001; 83002; 83036; 83520; 84146; 84402; 84403 ==

== ENCOUNTER → 2024-08-09 09:41 | Outpatient (BNVA) | payer BC, SELFPAY | PROVIDERS: Family Provider Nurse Practitioner Family; PCP Nurse Practitioner Family; Visit Provider Nurse Practitioner Family | DX: Z79.899 Other long term (current) drug therapy (principal) | CPT/HCPCS: 86480 ==

== ENCOUNTER 2024-09-24 09:35 | Outpatient (CLI) | payer BC, SELFPAY ==
[2024-09-24 10:20] LABS: Basophils # 0.1 10^3/uL (0.0-0.1); Basophils % 0.5 %; Eosinophils # 0.3 10^3/uL (0.0-0.8); Eosinophils % 2.4 %; Hematocrit 43.8 % (36-47); Lymphocytes # 3.7 10^3/uL (0.8-4.8); Lymphocytes % 34.6 %; Mean Corpuscular HGB Conc 33.3 g/dL (30-55); Mean Corpuscular Hemoglobin 31.4 pg (27-33); Mean Corpuscular Volume 94.2 fl (85-98); Mean Platelet Volume 10.4 fL (7.4-10.4); Monocytes # 0.5 10^3/uL (0.2-0.9); Neutrophils # 6.07 10^3/uL (1.8-7.7); Neutrophils % 57.1 %; Nucleated Red Blood Cells % 0 %; Platelet Count 301 10^3/cmm (157-399); Red Blood Count 4.65 10^6/uL (3.85-5.65); White Blood Count 10.61 10^3/uL (3.29-11.43)
[2024-09-24 11:15] LABS: Alanine Aminotransferase 51 U/L (0-33); Aspartate Amino Transferase 27 U/L (0-32); Glomerular Filtration Rate 81.6 mL/min (90-130)
== END 2024-09-24 09:36 | disposition home or self-care (01) ==
LOC: LAB 09:38
PROVIDERS: Family Provider Nurse Practitioner Family; PCP Nurse Practitioner Family; Visit Provider Internal Medicine
DX: M05.9 Rheumatoid arthritis with rheumatoid factor, unspecified (principal); D84.9 Immunodeficiency, unspecified; Z79.899 Other long term (current) drug therapy; L73.2 Hidradenitis suppurativa
CPT/HCPCS: 36415; 82565; 84450; 84460; 85025

== ENCOUNTER → 2024-12-25 11:15 | Outpatient (BNVA) | payer BC, SELFPAY | PROVIDERS: Family Provider Nurse Practitioner Family; PCP Nurse Practitioner Family; Visit Provider Nurse Practitioner Family | DX: M25.561 Pain in right knee (principal) | CPT/HCPCS: 73562 ==

== ENCOUNTER 2025-01-01 09:28 | Outpatient (CLI) | payer BC, SELFPAY ==
--- NOTE | 2025-01-01 10:15 | MR_ITS ---
WS: [id number] MRI RIGHT KNEE HISTORY: M25.561 - Pain in right knee COMPARISON: 12/25/2024 Anterior cruciate ligament: Intact. Posterior cruciate ligament: Intact. Medial collateral ligament: Intact. Posterior lateral corner structures: Intact. Medial menisci: Intact. Normal signal, size and shape. Lateral meniscus: Intact. Normal signal, size and shape. Extensor mechanism: Distal quadriceps tendon and patellar tendons are intact. Fluid and soft tissue: No joint effusion. No Stockton's cyst. Osseous and articular structures: Patellofemoral compartment: Mild thinning of the cartilage greatest over the lateral patellar facet. No underlying marrow edema. Medial compartment: Minimal narrowing of the medial compartment. Very minimal fissuring of the cartilage centrally along the weightbearing surface of the femoral condyle and mid tibial plateau. No marrow edema. Lateral compartment: Very minimal narrowing of the lateral compartment with fissuring of the cartilage. No full-thickness cartilage defects or marrow edema. MR/MR knee RT wo con* [id number] IMPRESSION: 1. No marrow edema or fracture. 2. No meniscal tear. 3. No ACL tear. 4. Mild chondromalacia involving all 3 compartments. No subchondral cystic eladia nge.
== END 2025-01-01 09:29 | disposition home or self-care (01) ==
PROVIDERS: PCP Nurse Practitioner Family; Visit Provider Nurse Practitioner Family
DX: M94.261 Chondromalacia, right knee (principal); M25.661 Stiffness of right knee, not elsewhere classified; M25.561 Pain in right knee; W19.XXXA Unspecified fall, initial encounter
CPT/HCPCS: 73721

== ENCOUNTER 2025-01-17 05:00 | Outpatient (RCR) | payer BC, SELFPAY | END 2025-02-16 23:59 | disposition home or self-care (01) | LOC: TPT 05:00 | PROVIDERS: Visit Provider Orthopaedic Surgery | DX: M25.561 Pain in right knee (principal) | CPT/HCPCS: 97110; 97161 ==

== ENCOUNTER 2025-02-17 05:00 | Outpatient (RCR) | payer BC, SELFPAY | END 2025-02-26 10:12 | disposition home or self-care (01) | LOC: TPT 05:00 | PROVIDERS: PCP Nurse Practitioner Family; Visit Provider Orthopaedic Surgery | DX: M25.561 Pain in right knee (principal) | CPT/HCPCS: 97110 ==

== ENCOUNTER → 2025-04-07 09:16 | Outpatient (BNVA) | payer BC, SELFPAY | PROVIDERS: PCP Nurse Practitioner Family; Visit Provider Nurse Practitioner Family | DX: Z79.899 Other long term (current) drug therapy (principal) | CPT/HCPCS: 80048; 80076; 85025; 86480 ==

== ENCOUNTER 2025-04-11 03:33 | Emergency (ER) | payer BC, SELFPAY ==
[2025-04-11 03:35] VITALS: BP 159/90; PULSE 105; RESP 18; TEMP 36.6; O2SAT 99; BMI 39.4
--- OUTSIDE RECORDS SUMMARY | 2025-04-11 03:39 | XMS_ITS | Encounter Summary ---
Author Organization [facility] Address [address] [place] [address] Care Team Providers Care Mail Carrier Name Role Phone Unavailable Primary Care Provider Unavailabl e Encounter Details Date Type Department Care Team (Late st Contact Info) Description 06/03/2002 Emergency [facility] Emergency Department [address] 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
--- OUTSIDE RECORDS SUMMARY | 2025-04-11 03:39 | XMS_ITS | Clinical Summary ---
Author Organization [facility] Address [address] Vera: Epic Prelude ADT SUNIL WEEKS [address] Care Team Providers Care Delivery Engineer Name Role Phone Unavailable Primary Care Provider Unavailabl e Immunizations Immunization Administration Dates Next Due (M-M-R II/PRIORIX)(12 MO UP) MEASLES, MUMPS AND RUBELLA VIRUS VACCINE, 0.5 ML IM/SUBCUT 10/13/1994,04/15/1993 Dt Dtp Dtap Vaccine 02/07/1995, 4,06/23/1993,1992,1989 HIB, Unspecified Formulation 05/16/1994 Hepatitis A Vaccine 09/03/1998,04/13/1998,1997 Hepatitis B Vaccine 04/13/1998, 6,03/08/1995,1994 IPV/OPV 05/16/1994, 4,04/15/1993,1989 Social History Tobacco Use Types Packs/Day Years Used Date Smoking Tobacco: Never Assessed Comments Unknown Sex and Gender Information Value Date Recorded Sex Assigned at Not on file 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
--- NOTE | 2025-04-11 04:22 | XRR_ITS ---
PROCEDURE INFORMATION: Exam: XR Right Wrist Exam date and time: 04/11/2025 4:51 AM Age: 35 years old Clinical indication: Pain; Wrist; Right TECHNIQUE: Imaging protocol: Radiologic exam of the right wrist. Views: 3 or more views. COMPARISON: No relevant prior studies available. FINDINGS: Bones/joints: Marked degenerative changes predominantly affecting the proximal carpal row with articular-surface narrowing. Small erosive changes may be present at the articulation of the distal ulna and triquetrum. Soft tissues: Normal. XR/XR wrist RT min 3V* [id number] IMPRESSION: Arthritic changes.
--- NOTE | 2025-04-11 05:09 | W.ED.EXTPRO ---
HPI - Extremity Problem General: Chief complaint: Extremity Injury, Upper Stated complaint: right wrist injury Time Seen by Provider: 04/11/25 04:23 History of Present Illness: Patient is a 35-year-old female presenting with atraumatic right wrist pain and mild swelling. She states this started 3 days ago. 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 She has not noted a fever, joint redness, joint warmth. She still is able to flex and extend her wrist. She does not have a h/o gout but takes adalimumab for arthritis and HS. She reports no trauma. Tenderness is over the ulnar aspect of the wrist. Related Data Home Medications ?Medication ?Instructions ?Recorded ?Confirmed levothyroxine 150 mcg capsule 150 mcg PO DAILY 07/02/21 04/01/25 adalimumab 40 mg/0.8 mL 40 mg SUBCUT Q14D 08/24/22 04/01/25 subcutaneous syringe kit (Humira) folic acid 0.8 mg capsule 0.8 mg PO DAILY 08/05/24 04/01/25 methotrexate 2.5 mg/mL oral 2.5 mg PO DAILY 08/05/24 04/01/25 solution Previous Rx's ?Medication ?Instructions ?Recorded ciclopirox 0.77 % topical cream 1 applic topical BID #90 grams 06/02/22 clindamycin 1.2 % (1 % 1 applic topical DAILY #45 grams 09/15/22 base)-benzoyl peroxide 5 % topical gel mupirocin 2 % topical ointment 1 applic topical BID #22 grams 09/15/22 clindamycin phosphate 1 % lotion 1 applic topical DAILY #60 mL 09/27/22 citalopram 10 mg tablet (Celexa) 10 mg PO DAILY #30 tabs 12/27/23 fluticasone propionate 50 1 spray intranasal BID 30 days 03/21/24 mcg/actuation nasal #9.9 mL spray,suspension (Flonase Allergy Relief) montelukast 10 mg tablet 10 mg PO DAILY 30 days #30 tabs 03/21/24 (Singulair) omeprazole 40 mg capsule,delayed 40 mg PO DAILY 30 days #30 caps 03/21/24 release medroxyprogesterone 10 mg tablet 10 mg PO DAILY #10 tabs 08/15/24 (Provera) ondansetron 4 mg disintegrating 4 mg PO Q8H PRN nausea and 08/19/24 tablet vomiting #14 tabs triamcinolone acetonide 0.1 % 1 applic topical TID #30 grams 04/01/25 topical ointment medroxyprogesterone 150 mg/mL 150 mg IM .q 90 days #1 mL 04/10/25 intramuscular suspension ketorolac 10 mg tablet 10 mg PO Q6H PRN pain 5 days #20 04/11/25 tabs Allergies Allergy/AdvReac Type Severity Reaction Status Date / Time Sulfa (Sulfonamide Allergy Severe Chills and Verified 04/11/25 03:40 Antibiotics) Tempture [facility] PFSH: Medical History (Updated 04/11/25 @ 05:22 by Aixa Coppola MD) Hyperlipemia Rheumatoid arthritis Hidradenitis suppurativa Axillary abscess Arthritis Kidney stones Thyroid cancer Environmental and seasonal allergies Surgical History History of lithotripsy History of thyroidectomy Family History Grandmother CAD (coronary artery disease) Maternal Diabetes Maternal Hypertension Paternal Father Cancer Kidney Grandfather Hypertension Paternal Denies family history of Colon cancer Ovarian cancer Prostate cancer Heart disease Breast cancer Uterine cancer Thyroid disease Stroke Social History Smoking and tobacco/nicotine status: never used tobacco/nicotine Substance/Drug Use: never Physical Exam Narrative: EXAM NARRATIVE: Vital signs were reviewed. Patient is alert and oriented. Patient is breathing comfortably, no increased WOB or accessory muscle use. SpO2 is above 95% on RA. No hypotension or tachycardia. Wrist exam: Mild swelling, no erythema, no warmth. She can still flex and extend the wrist. She has pain w/palpation over the ECU tendons. Course Vital Signs: Vital signs: Vital Signs Temperature 98 F 04/11/25 03:35 Pulse Rate 105 H 04/11/25 03:35 Respiratory Rate 18 04/11/25 03:35 Blood Pressure 159/90 04/11/25 03:35 Pulse Oximetry 99 04/11/25 03:35 MDM - Extremity (Nontraumatic) Medical Decision Making Patient is a 35-year-old female presenting with a chief complaint of atraumatic wrist pain. Differential diagnosis includes, but is limited to, arthritis, septic arthritis, gout, de Quervain tenosynovitis, ECU tendinitis, trauma. On exam she is hemodynamically stable. She is only mildly tachycardic but appears to be in pain. My exam is less concerning for infected joint as the entirety of the wrist is not swollen, erythematous and she is to able to move it and full range of motion. She has pain with palpation over the ECU tendons, presentation may be most consistent with ECU tendinitis. She was treated with dexamethasone, Toradol, oxycodone. She has a wrist splint at home already that she can wear. Patient was counseled on supportive care at home, given return precautions and discharged in stable condition with recommendation for outpatient follow-up with primary care nurse or doctor. Of note, patient denies possibility of , is on the control injection. XR interpretation done by ED provider, pending radiology final review ED provider radiology interpretation(s): No acute fracture or dislocation. Discharge Plan Discharge Patient Disposition: Home Clinical Impression: Extensor carpi ulnaris tendinitis Condition: Stable Prescriptions: New ketorolac 10 mg tablet 10 mg PO Q6H PRN (Reason: pain) 5 Days Qty: 20 0RF No Action levothyroxine 150 mcg capsule 150 mcg PO DAILY Rx Instructions: Take one tablet daily, and one day a week add 1/2 tablet Humira 40 mg/0.8 mL syringe kit 40 mg SUBCUT Q14D citalopram [Celexa] 10 mg tablet 10 mg PO DAILY Qty: 30 0RF triamcinolone acetonide 0.1 % ointment 1 applic topical TID Qty: 30 0RF mupirocin 2 % ointment 1 applic topical BID Qty: 22 4RF Rx Instructions: Apply to affected area(s) until healed. clindamycin-benzoyl peroxide 1.2 %(1 % base) -5 % gel 1 applic topical DAILY Qty: 45 6RF Rx Instructions: Apply thin film to face, chest, and back every morning. May bleach clothes omeprazole 40 mg capsule,delayed release(DR/EC) 40 mg PO DAILY 30 Days Qty: 30 11RF montelukast [Singulair] 10 mg tablet 10 mg PO DAILY 30 Days Qty: 30 11RF fluticasone propionate [Flonase Allergy Relief] 50 mcg/actuation spray,suspension 1 spray INTRANASAL BID 30 Days Qty: 9.9 11RF folic acid 0.8 mg capsule 0.8 mg PO DAILY methotrexate 2.5 mg/mL solution 2.5 mg PO DAILY medroxyprogesterone 150 mg/mL suspension 150 mg IM .q 90 days Qty: 1 3RF ciclopirox 0.77 % cream 1 applic topical BID Qty: 90 0RF Rx Instructions: Apply twice daily to affected area until follow up clindamycin phosphate 1 % lotion 1 applic topical DAILY Qty: 60 6RF Rx Instructions: Apply thin film to affected area 1-2 times daily medroxyprogesterone [Provera] 10 mg tablet 10 mg PO DAILY Qty: 10 0RF Rx Instructions: take 1 tab daily for 10 days ondansetron 4 mg tablet,disintegrating 4 mg PO Q8H PRN (Reason: nausea and vomiting) Qty: 14 1RF Rx Instructions: take one tab every 8 hours as needed Discharge Orders: Discharge ED (Routine); Ordered 04/11/25 Ordered By: Aixa Coppola Referrals: Danielle Vasquez FNP-C [Primary Care Provider, Family Practice] Patient Instructions: Opioid Safety, Pain Management, Patient Portal & Kin Instructions, Tendinitis (ED) Activity Restrictions/Additional Instructions: Please continue to monitor your condition closely at home. Take Toradol 10mg and Tylenol 500-1000mg every six hours for pain and inflammation. Rest, ice and elevate your injured extremity and wear splint for comfort. If your condition worsens or additional concerns arise, please return promptly to the emergency department for reassessment. Specifically, if you develop a fever, worsening pain, redness of the wrist joint, increasing difficulty flexing or extending your wrist please return immediately to the emergency department for reassessment. Follow up with your primary care doctor on Monday. Print Language: Tamazight Coding Level of Care Code ED Winding Lathe Operator for Hari Quintanilla
== END 2025-04-11 05:37 | disposition home or self-care (01) ==
PROVIDERS: Emergency Provider Emergency Medicine; PCP Nurse Practitioner Family
DX: M65.831 Other synovitis and tenosynovitis, right forearm (principal); E78.5 Hyperlipidemia, unspecified; Z85.850 Personal history of malignant neoplasm of thyroid
CPT/HCPCS: 73110; 96372; 99284; J1885; J8540; J9999

== ENCOUNTER → 2025-04-24 08:12 | Outpatient (BNVA) | payer BC, SELFPAY | PROVIDERS: PCP Nurse Practitioner Family; Visit Provider Nurse Practitioner Family | DX: R39.9 Unspecified symptoms and signs involving the genitourinary system (principal); N30.01 Acute cystitis with hematuria; R10.9 Unspecified abdominal pain | CPT/HCPCS: 81003; 87086 ==

== ENCOUNTER → 2025-04-25 09:37 | Outpatient (BNVA) | payer BC, SELFPAY | PROVIDERS: PCP Nurse Practitioner Family; Visit Provider Nurse Practitioner Family | DX: R10.9 Unspecified abdominal pain (principal) | CPT/HCPCS: 80053; 85025 ==

== ENCOUNTER → 2025-04-29 10:26 | Outpatient (BNVA) | payer BC, SELFPAY | PROVIDERS: PCP Nurse Practitioner Family; Visit Provider Nurse Practitioner Family | DX: R31.9 Hematuria, unspecified (principal) | CPT/HCPCS: 81003; 87086 ==

== ENCOUNTER 2025-05-01 12:39 | Outpatient (CLI) | payer BC, SELFPAY ==
--- NOTE | 2025-05-01 13:00 | MRR_ITS ---
PROCEDURE INFORMATION: Exam: MR Right Upper Extremity Joint Without Contrast; Wrist Exam date and time: 05/01/2025 12:53 PM Age: 35 years old Clinical indication: Wrist; Right; HX of thyroid cancer. Osteoarthritis, possible injury x 1 month, pain/swelling since; Additional info: M19.90 - unspecified osteoarthritis, unspecified site TECHNIQUE: Imaging protocol: Magnetic resonance imaging of the right upper extremity without contrast. Exam focused on the wrist. COMPARISON: CR (UP EX, ) 04/11/2025 4:51 AM FINDINGS: Bones/joints: This exam is limited by patient motion. There is no acute reactive marrow edema appreciated. There is moderate to severe polyarticular degenerative osteoarthritis throughout the wrist. There is polyarticular joint space narrowing and marginal osteophytosis. A prominent osteophyte extends medially from the dorsal medial edge of the radial articular cortex. There is no bone erosion. There is [id number] contact throughout the articular margin of the scaphoid and lunate. Scapholunate ligament: There is no widening of the scapholunate interval by radiograph or MR. The scapholunate ligament is not discretely defined. Lunotriquetral ligament: Unremarkable. No tear. Triangular fibrocartilage complex: Motion artifact degrades detail evaluation of the triangular fibrocartilage. Flexor compartment tendons: Unremarkable. No tear. Extensor compartment tendons: Unremarkable. No tear. Soft tissues: Unremarkable. MR/MR wrist RT wo con* [id number] IMPRESSION: 1. No definite MR evidence of acute process or internal derangement of the wrist given the limitations of motion. 2. Moderate to severe polyarticular degenerative osteoarthritis dominating at the radiocarpal articulation.
== END 2025-05-01 12:40 | disposition home or self-care (01) ==
LOC: RAD 12:43
PROVIDERS: PCP Nurse Practitioner Family; Visit Provider Nurse Practitioner Family
DX: M19.031 Primary osteoarthritis, right wrist (principal); M06.831 Other specified rheumatoid arthritis, right wrist; M25.431 Effusion, right wrist; M25.731 Osteophyte, right wrist
CPT/HCPCS: 73221; 81000

== ENCOUNTER → 2025-05-05 13:47 | Outpatient (BNVA) | payer BC, SELFPAY | PROVIDERS: Family Provider Nurse Practitioner Family; PCP Nurse Practitioner Family; Visit Provider Nurse Practitioner Family | DX: R31.9 Hematuria, unspecified (principal) | CPT/HCPCS: 81000 ==

== ENCOUNTER → 2025-05-26 13:19 | Outpatient (BNVA) | payer BC, SELFPAY | PROVIDERS: Family Provider Nurse Practitioner Family; PCP Nurse Practitioner Family; Visit Provider Nurse Practitioner Family | DX: N39.0 Urinary tract infection, site not specified (principal) | CPT/HCPCS: 81000 ==

== ENCOUNTER → 2025-05-27 11:52 | Outpatient (BNVA) | payer BC, SELFPAY | PROVIDERS: Family Provider Nurse Practitioner Family; PCP Nurse Practitioner Family; Visit Provider Nurse Practitioner Family | DX: N39.0 Urinary tract infection, site not specified (principal) | CPT/HCPCS: 87086 ==

== ENCOUNTER → 2025-06-03 11:12 | Outpatient (BNVA) | payer BC, SELFPAY | PROVIDERS: Family Provider Nurse Practitioner Family; PCP Nurse Practitioner Family; Referring Provider Nurse Practitioner Family; Visit Provider Internal Medicine Rheumatology | DX: M25.50 Pain in unspecified joint (principal); M81.0 Age-related osteoporosis without current pathological fracture | CPT/HCPCS: 36415; 80076; 82306; 82565; 85025; 85651; 86140 ==